=== PATIENT | male | born 1970 | race African-American/Black ===

== ENCOUNTER 2017-09-27 08:06 | Emergency (ER) | payer OTHER ==
[~2017-09-27] VITALS: Ht 188 cm; Wt 113.4 kg
--- NOTE | 2017-09-27 08:10 | NUR ---
BIBRA DT RIGHT LOWER EXTREMITY REDNESS AND PAIN POSSIBLE SPIDER BITE (PER PATIENT). PATIENT CO 8/10 PAIN ON SITE X 3 DAYS. PATIENT IS AFEBRILE. SKIN IS WARM TO TOUCH AND NON DIAPHORETIC. AFEBRILE. VSS
[2017-09-27] MEDS ORDERED: SULFAMETH/TRIMETH 800/160 MG 1 UDTAB TABLET PO ONE ×2 (08:29→08:30)
[2017-09-27 08:57] VITALS: BP 140/70
--- NOTE | 2017-09-27 08:57 | NUR ---
Patient discharged to home in stable condition. Written and verbal after care instructions given. Patient verbalizes understanding of instruction.
== END 2017-09-27 08:59 | disposition home or self-care (01) ==
LOC: ER 08:07
DX: L53.8 Other specified erythematous conditions (principal); B95.7 Other staphylococcus as the cause of diseases classified elsewhere; I10 Essential (primary) hypertension; F32.9 Major depressive disorder, single episode, unspecified; Z86.19 Personal history of other infectious and parasitic diseases
CPT/HCPCS: 99283; A4606; Z7610

== ENCOUNTER 2019-09-10 20:43 | Emergency (ER) | payer OTHER ==
[~2019-09-10] VITALS: Ht 198.1 cm; Wt 137.0 kg
--- NOTE | 2019-09-10 21:12 | NUR ---
bibs reffered from an urgent care for CP. pt denied any CP at his time. pt w/ c/o H/A and chronic L shoulder pain due to past injury, pmh of HTN . has not received antihypertensive meds x 10 months. noted w/ elevated BP . placed on acardaic monitor
[2019-09-10] MEDS ORDERED: hydrALAZINE HCL IV 20 MG VIAL ONE (21:37)
[2019-09-10 21:44] LABS: BASOPHILS # (AUTO) 0.1 /CMM (0.0-0.2); EOSINOPHILS % (AUTO) 0.8 % (0.0-6.0); HEMATOCRIT 46 % (39-51); HEMOGLOBIN 15.6 g/dL (13.5-17.5); LYMPHOCYTES # (AUTO) 1.9 /CMM (0.8-4.8); LYMPHOCYTES % (AUTO) 36.7 % (20.0-44.0); MEAN CORPUSCULAR HGB CONC 34 g/dl (31.0-36.0); MEAN CORPUSCULAR VOLUME 90 fL (80-96); MONOCYTES # (AUTO) 0.5 /CMM (0.1-1.30); MONOCYTES % (AUTO) 9.2 % (2.0-12.0); NEUTROPHILS # (AUTO) 2.7 /CMM (1.8-8.9); NEUTROPHILS % (AUTO) 52.3 % (43.0-81.0); PLATELET COUNT (AUTO) 146 /CMM (150-450); RED BLOOD CELL COUNT(AUTO) 5.08 MIL/uL (4.5-6.0); WHITE BLOOD COUNT (AUTO) 5.2 K/uL (4.3-11.0)
[2019-09-10 21:55] LABS: CALCIUM, SERUM 9.1 mg/dL (8.5-10.1); CHLORIDE 105 mmol/L (98-107); GLUCOSE 127 mg/dL (74-106); POTASSIUM 3.8 mmol/L (3.5-5.1); SODIUM SERUM 141 mmol/L (136-145); UREA NITROGEN, BLOOD 14 mg/dL (7-18)
[2019-09-10] MEDS ORDERED: hydrALAZINE HCL IV 20 MG VIAL IV ONE (22:00)
[2019-09-10 22:03] LABS: CARBON DIOXIDE 26 mmol/L (21-32)
--- NOTE | 2019-09-10 23:24 | NUR ---
IV removed. Catheter intact and site benign. Pressure and 4x4 applied to site. No bleeding noted.Patient discharged to home in stable condition. Rx and Written and verbal after care instructions given. Patient verbalizes understanding of instruction.
[2019-09-10 23:25] VITALS: BP 159/88
== END 2019-09-10 23:25 | disposition home or self-care (01) ==
LOC: ER 20:50
DX: I16.0 Hypertensive urgency (principal); I10 Essential (primary) hypertension; F32.9 Major depressive disorder, single episode, unspecified; F10.10 Alcohol abuse, uncomplicated; Y90.9 Presence of alcohol in blood, level not specified; Z86.19 Personal history of other infectious and parasitic diseases
CPT/HCPCS: 36415; 71045; 80048; 84484; 85025; 93005; 96374; 99284; J0360